=== PATIENT | male | born 1955 | race American Indian/Alaskan Native ===

== ENCOUNTER 2017-08-02 11:03 | Emergency (ER) | payer OTHER ==
[2017-08-02] MEDS ORDERED: NORCO 5/325 PO ONE ×2 (19:19→23:58)
--- NOTE | 2017-08-02 20:26 | Cat Scan Report ---
FINAL REPORT EXAM: CT ABDOMEN PELVIS WO CON HISTORY: ? kideny stone please include l-spine reading TECHNIQUE: CT abdomen and pelvis without contrast CT lumbar spine from reconstruction PRIORS: None. FINDINGS: No acute abnormality identified in the lung bases. No focal abnormality identified within the liver parenchyma. The spleen demonstrates normal size and attenuation. No pancreatic abnormalities seen. Kidneys demonstrate no evidence of hydronephrosis or nephrolithiasis. No ureteral calculus identified. The adrenal glands are unremarkable. Abdominal aorta is normal in caliber. No pathologically enlarged lymph nodes are identified. No signs of free fluid or free air No evidence of small bowel dilatation. No evidence for colonic distention. Multiple diverticula are present distal descending and sigmoid colon. No evidence for acute diverticulitis at this time. Urinary bladder is unremarkable. Lumbar spine demonstrates normal height vertebral bodies. There is normal alignment. Disc spaces are within normal limits. There is small anterior osteophytes present lower lumbar spine L3 through L5. No acute fractures are identified. Facet joints demonstrate normal alignment. Spinous processes are intact. IMPRESSION: Mild spondylosis lumbar spine Colonic diverticula. No evidence for acute diverticulitis.
[2017-08-02 20:35] LABS: Calcium 9.5 mg/dL (8.4-10.2); Chloride 94.5 mmol/L (98-107); Potassium 4.1 mmol/L (3.6-5.0)
[2017-08-02 20:41] LABS: Bilirubin,Urine NEG (Negative); Blood,Urine SM (Negative); Ketones,Urine NEG (Negative); Leukocyte Esterase,Urine NEG (Negative); Nitrite,Urine NEG (Negative); Protein,Urine <15 mg/dL mg/dL (Negative); Urobilinogen,Urine < 2.0 mg/dL (<2.0)
[2017-08-02] MEDS ORDERED: NACL 0.9% 1000 ML 1,000 ML IV ONE (20:50)
[2017-08-03] MEDS ORDERED: NORCO 5/325 ONE (00:01)
[2017-08-03 00:11] VITALS: BP 167/94
--- NOTE | 2017-08-03 00:34 | XRay Report ---
FINAL REPORT EXAM: XR KNEE 1-2V RT HISTORY: right knee pain COMPARISON: None available. FINDINGS: Two views the right knee obtained. Moderate narrowing of all 3 joint space compartments with moderately prominent osteophyte. Small suprapatellar effusion. No acute fracture dislocation. IMPRESSION: No acute bony abnormality. Degenerative changes.
== END 2017-08-03 00:30 | disposition home or self-care (01) ==
LOC: ED 11:03
DX: M54.41 Lumbago with sciatica, right side (principal); I10 Essential (primary) hypertension
CPT/HCPCS: 36415; 73560; 74176; 80048; 81001; 82550; 96360; 99284; J7030